=== PATIENT | male | born 1995 | race African-American/Black ===

== ENCOUNTER 2022-01-14 10:24 | Emergency (ER) | payer MEDICAID, SELFPAY ==
[2022-01-14 10:36] VITALS: BP 150/79; PULSE 81; RESP 18; TEMP 36.4; O2SAT 97
[2022-01-14 11:08] LABS: Add Urine Microscopic? YES; Appearance Urine Clear (Clear); Bilirubin Urine Negative (Negative); Blood Urine Negative (Negative); Color Urine Light Yellow (Yellow); Glucose Urine UA Negative (Negative); Ketones Urine Negative (Negative); Leukocyte Esterase Ur 1+ (Negative); Nitrate Urine Negative (Negative); Protein Urine Negative (Negative)
[2022-01-14] MEDS: cefTRIAXone 1 GM, LIDOCAINE HCL 1% LOCAL INJ 2.1 ML IM (11:13)
[2022-01-14] MEDS: AZITHROMYCIN 250 MG TABLET 1000 MG PO (11:13)
[2022-01-14 11:15] LABS: Bacteria Urine Trace /hpf; RBC Urine 0-2 /hpf (0-2)
--- NOTE | 2022-01-14 11:20 | ED.MALEGU ---
HPI - Male Genitourinary General Chief complaint: Urogenital-Male Stated complaint: Possible UTI Time Seen by Provider: 01/14/22 10:27 Source: patient Mode of arrival: ambulatory Limitations: no limitations History of Present Illness HPI Narrative: This is a 26-year-old male that presents with concerns of a possible STD, has been having dysuria and a penile discharge, is concerned about STIs, there is no testicular pain no abdominal pain no fever chills. Complaint: penile discharge Onset (ago): day(s) Duration: constant Location: penis Related Data Home Medications Medication Instructions Recorded Confirmed No Home Medications 01/14/22 01/14/22 Allergies Allergy/AdvReac Type Severity Reaction Status Date / Time No Known Allergies Allergy Verified 01/14/22 10:42 Review of Systems Review of Systems: All systems reviewed & are unremarkable except as noted in HPI and below PMFSH Past Medical History Medical History Patient denies medical problems Exam Const: General: healthy appearing, no acute distress and alert Limitations: no limitations HENMT: Head: normal to inspection Face and sinus: normal facial exam Eyes: Conjunctivae: conjunctivae normal Direct Ophthalmoscopy: no photophobia Neck: Neck: normal visual inspection, no lymphadenopathy and no meningeal signs Chest: Chest palpation & inspection: normal inspection of the chest Resp: Effort & Inspection: normal respiratory effort Auscultation: clear to auscultation bilaterally Cardio: Rate: regular rate Rhythm: regular rhythm GI: GI Palp: Yes Soft to palpation Auscultation: normal bowel sounds : Other: penile discharge Urinary Catheter: Urinary Catheter: patent and draining Back/Spine/Pelvis: Back: no CVA tenderness Skin: General skin exam: normal color Rashes: no rashes Neuro: General: patient oriented x3, moves all extremities and no meningeal signs Extrem: General: normal to inspection Psych: Mental Status: mental status grossly normal Course Course Emergency Course: patient UA reviewed, patient received a dose of 1g of ceftriaxone and 1g of p.o. Zithromax and urine for GN C, HIV and RPR were collected. Vital Signs Vital signs: Vital Signs Temperature 36.4 C 01/14/22 10:36 Pulse Rate 81 01/14/22 10:36 Respiratory Rate 18 01/14/22 10:36 Blood Pressure 150/79 H 01/14/22 10:36 Pulse Oximetry 97 01/14/22 10:36 Oxygen Delivery Room Air 01/14/22 10:36 Temperature 36.4 C 01/14/22 10:36 Pulse Rate 81 01/14/22 10:36 Respiratory Rate 18 01/14/22 10:36 Blood Pressure 150/79 H 01/14/22 10:36 Pulse Oximetry 97 01/14/22 10:36 Oxygen Delivery Room Air 01/14/22 10:36 MDM - Male Genitourinary Lab Data Labs: Lab Results 01/14/22 01/14/22 01/14/22 Range/Units 10:58 10:58 11:00 Urine Color Light yellow (Yellow) Urine Appearance Clear (Clear) Urine pH 7.0 (5.0-8.0) Ur Specific [place] 1.010 (1.010-1.020) Urine Protein Negative (Negative) Urine Glucose (UA) Negative (Negative) Urine Ketones Negative (Negative) Ur Blood (Man) Negative (Negative) Urine Nitrate Negative (Negative) Urine Bilirubin Negative (Negative) Urine Urobilinogen 1.0 (0.2-1.0) mg/dL Ur Leukocyte Esterase 1+ H (Negative) Urine RBC 0-2 (0-2) /hpf Urine WBC 7-9 H (0-3) /hpf Urine Bacteria Trace (None) /hpf RPR Pending RPR Titer Add Testing Pending C.trachomatis RNA (TMA) Pending N.gonorrhoeae RNA (TMA) Pending Critical Care Time Critical Care Time Critical Care Time: No Discharge Plan Discharge Clinical Impression: STD exposure Patient Disposition: Home, Self-Care Condition: Stable Instructions: Antibiotic Form, Sexually Transmitted Diseases (ED) Additional Instructions: advised follow-up with primary care physic
[2022-01-14 11:39] LABS: HIV 1 P24 AG Negative (Negative); HIV 1/2 AB Negative (Negative)
[2022-01-14 11:44] VITALS: BP 126/71; PULSE 78; RESP 16; TEMP 36.4; O2SAT 98
[2022-01-17 14:03] LABS: RPR Screen Non-Reactive (Non-Reactive)
== END 2022-01-14 11:46 | disposition home or self-care (01) ==
PROVIDERS: Emergency Provider Emergency Medicine
DX: Z20.2 Contact with and (suspected) exposure to infections with a predominantly sexual mode of transmission (principal)
CPT/HCPCS: 36415; 81001; 86592; 86703; 87491; 87591; 96372; 99283; A9270; J0696

== ENCOUNTER 2022-02-09 18:57 | Emergency (ER) | payer SELFPAY ==
--- NOTE | 2022-02-09 18:59 | ED.WOUNDLAC ---
HPI - Wound/Laceration General Chief Complaint: Unspecified Stated Complaint: suture removal Time Seen by Provider: 02/09/22 18:58 Source: patient and RN notes reviewed Mode of arrival: ambulatory Limitations: no limitations History of Present Illness HPI narrative: Patient had an accident about 3 and half weeks ago he was walking with glass of wine on his birthday and he tripped and fell glass broke cut his left wrist and his left eyebrow. The sutures in his left wrist have been taken out but the ones in left eyebrow have not. He has been putting some antibiotic ointment on taking care of it really well. Onset (ago): week(s) (3.5) Location: face ( left eyebrow) Place: home Patient tetanus UTD: Yes Context: accidental Associated symptoms: none Related Data Home Medications Medication Instructions Recorded Confirmed No Home Medications 01/14/22 01/14/22 Allergies Allergy/AdvReac Type Severity Reaction Status Date / Time No Known Allergies Allergy Verified 01/14/22 10:42 Review of Systems Review of Systems: All systems reviewed & are unremarkable except as noted in HPI and below PMFSH Past Medical History Medical History Patient denies medical problems Social History Social History (Updated 02/09/22 @ 19:15 by Sonu Wilburn MD) Tobacco type: e-cigarettes/vaping Alcohol intake: current Alcohol use details: Socially Exam Const: General: healthy appearing, no acute distress and alert Nutritional Appearance: well nourished and thin Limitations: no limitations HENMT: Head: normal to inspection Ears: external ears normal Face and sinus: normal facial exam Eyes: Conjunctivae: conjunctivae normal Pupils: Equal, round and reactive pupils present EOM: EOMs intact bilaterally Neck: Neck: normal visual inspection Resp: Effort & Inspection: normal respiratory effort Auscultation: clear to auscultation bilaterally Cardio: Rate: regular rate Rhythm: regular rhythm GI: GI Palp: Yes Soft to palpation and No Tenderness to palpation present (GI) Auscultation: normal bowel sounds Back/Spine/Pelvis: Cervical Spine: cervical ROM normal Thoracic/Lumbar Spine: thoraco-lumbar ROM normal Skin: General skin exam: normal color Other: sutures present in the left eyebrow Neuro: General: patient oriented x3 and moves all extremities Speech: normal speech Gait exam (Neuro): Normal gait present Extrem: General: normal to inspection and no clubbing, cyanosis or edema Psych: Mental Status: mental status grossly normal Affect: normal affect Attitude: cooperative Procedures Other Procedure Procedure 1: Other Procedure: Six sutures removed without difficulty of left eyebrow. No more could be appreciated. Discharge Plan Discharge Clinical Impression: Encounter for removal of sutures Patient Disposition: Home, Self-Care Condition: Improved Instructions: Stitches Removal (ED) Additional Instructions: it is possible that you still have some retained stitches that are mixed in with your eyebrow color. If you find any other stitches present return to your primary care physician or the emergency room for removal. Prescriptions: No Action No Home Medications Follow-up/Referrals: UNKNOWN,DOCTOR [Primary Care Provider] - Time of Disposition: 19:13
[2022-02-09 19:00] VITALS: BP 138/95; PULSE 77; RESP 18; TEMP 36.4; O2SAT 97
[2022-02-09 19:44] VITALS: BP 137/93; PULSE 65; RESP 17; TEMP 36.5; O2SAT 98
== END 2022-02-09 19:45 | disposition home or self-care (01) ==
PROVIDERS: Emergency Provider Emergency Medicine
DX: Z48.02 Encounter for removal of sutures (principal)
CPT/HCPCS: 99281